=== PATIENT | female | born 1970 ===

== ENCOUNTER → 2020-01-22 | Outpatient (CLI) | payer BC ==
--- NOTE | 2020-01-22 13:06 | Diagnostic Imaging Report ---
Indication: Chest pain Technique: Continuous helical transaxial imaging of the chest was obtained from the thoracic inlet to the upper abdomen. No intravenous contrast was administered. Coronal 2-D reformats were also obtained. Total Dose length Product (DLP): [address] Dose Index Volume (CTDIvol): 3.6 mGy Comparison: none Findings: The study is limited by the nonadministration of IV contrast. Mild reticular densities and groundglass opacities are present in the posterior basal aspects of the lungs likely atelectasis. The lungs are clear otherwise. No adenopathy appreciated grossly. The heart, is unremarkable. The visualized part of the upper abdomen shows multiple gallstones. IMPRESSION: Negative evaluation. No mass identified Gallstones The CT scanner at [facility] is accredited by the [employer] and the scans are performed using dose optimization techniques as appropriate to a performed exam including Automatic Exposure control.
== END | disposition home or self-care (01) ==
LOC: CAT 09:25
DX: R07.9 Chest pain, unspecified (principal); K80.80 Other cholelithiasis without obstruction
CPT/HCPCS: 71250